=== PATIENT | female | born 1985 ===

== ENCOUNTER 2021-10-10 05:40 | Inpatient (IN) | payer OTHER ==
[2021-10-10 06:12] VITALS: BMI 30.1
[2021-10-10] MEDS: ELECTROLYTE-148 SOLN 1,000 ML IV SCH (07:00)
[2021-10-10] MEDS ORDERED: OXYTOCIN 20 UNITS in 0.9% NS 20 UNIT/1,000 ML INFUS.BAG IV ONE (08:12)
[2021-10-10] MEDS ORDERED: PHENYLEPHRINE HCL 10 MG/1 ML SINGLE DOSE VIAL ONE (08:16)
[2021-10-10] MEDS ORDERED: ePHEDrine SULFATE 50 MG/1 ML AMPULE ONE (08:16)
[2021-10-10] MEDS ORDERED: ceFAZolin SODIUM 1 GM VIAL ONE (08:34)
[2021-10-10] MEDS ORDERED: ONDANSETRON 4 MG/2 ML VIAL ONE (08:57)
[2021-10-10] MEDS ORDERED: ONDANSETRON 4 MG/2 ML VIAL IVPUSH PRN (09:44)
[2021-10-10] MEDS ORDERED: ELECTROLYTE-148 SOLN 500 ML IV ONE (09:46)
[2021-10-10] MEDS ORDERED: CITRIC ACID/SODIUM CITRATE 30 ML UNIT-DOSE CUP PO ONE (09:46)
[2021-10-10] MEDS ORDERED: METHYLERGONOVINE MALEATE 0.2 MG/1 ML AMP IM PRN (09:47)
[2021-10-10] MEDS ORDERED: OXYTOCIN 20 UNITS in 0.9% NS 20 UNIT/1,000 ML INFUS.BAG IV SCH (10:00)
[2021-10-10] MEDS: IBUPROFEN 800 MG/8 ML IJ IVPB PRN ×2 (10:05→18:17)
[2021-10-10] MEDS: IBUPROFEN 600 MG TABLET (FP) PO PRN (15:20)
[2021-10-11] MEDS: IBUPROFEN 800 MG/8 ML IJ IVPB PRN (01:13)
[2021-10-11] MEDS: ACETAMINOPHEN 325 MG TABLET (FP) PO PRN ×2 (06:12→13:26)
[2021-10-11 09:02] LABS: BASO % 0.2 % (0-2.0); HEMOGLOBIN 10.1 GM/dL (10.7-15.3); LYMPH % 13.8 % (8-40); MCH 30.5 pg (25.7-33.7); MCHC 33.8 g/dl (32.0-36.0); MEAN CELL VOLUME 90.3 fl (80-96); MONO % 7.9 % (3.8-10.2); NEUT % 77.1 % (42.8-82.8); PLATELET COUNT 165 10^3/uL (134-434); RBC 3.32 M/mm3 (3.60-5.2); RDW 14.2 % (11.6-15.6); WHITE BLOOD COUNT 10.1 K/mm3 (4.0-10.0)
[2021-10-11] MEDS ORDERED: BISACODYL 10 MG SUPP.RECT RC PRN (09:47)
[2021-10-11] MEDS: SIMETHICONE 80 MG TAB.CHEW (FP) PO PRN ×2 (09:51→21:44)
[2021-10-11] MEDS ORDERED: DIPHTH,PERTUSS(ACELL),TET 0.5 ML DISP.SYRIN IM ONE (10:00)
[2021-10-11] MEDS: oxyCODONE HCL 5 MG TABLET PO PRN ×3 (11:20→21:45)
[2021-10-11] MEDS: IBUPROFEN 600 MG TABLET (FP) PO PRN (18:00)
[2021-10-11] MEDS: SENNOSIDES/DOCUSATE COMBO (SENNA PLUS) TABLET (UD) PO PRN (21:44)
[2021-10-12] MEDS: IBUPROFEN 600 MG TABLET (FP) PO PRN ×3 (02:02→18:19)
[2021-10-12] MEDS: oxyCODONE HCL 5 MG TABLET PO PRN ×3 (08:23→21:20)
[2021-10-12] MEDS: SIMETHICONE 80 MG TAB.CHEW (FP) PO PRN ×4 (08:25→21:19)
[2021-10-12] MEDS: ACETAMINOPHEN 325 MG TABLET (FP) PO PRN (12:23)
[2021-10-12] MEDS: SENNOSIDES/DOCUSATE COMBO (SENNA PLUS) TABLET (UD) PO PRN (21:21)
[2021-10-13] MEDS: oxyCODONE HCL 5 MG TABLET PO PRN ×3 (02:19→14:23)
[2021-10-13] MEDS: SIMETHICONE 80 MG TAB.CHEW (FP) PO PRN ×3 (02:21→14:25)
[2021-10-13] MEDS: IBUPROFEN 600 MG TABLET (FP) PO PRN (06:30)
[2021-10-13] MEDS: ACETAMINOPHEN/CAFFEINE/BUTALBITAL 1 TAB PO PRN (18:33)
[2021-10-14] MEDS: ACETAMINOPHEN/CAFFEINE/BUTALBITAL 1 TAB PO PRN ×3 (00:05→13:07)
[2021-10-14] MEDS: IBUPROFEN 600 MG TABLET (FP) PO PRN (04:23)
[2021-10-14] MEDS: ELECTROLYTE-148 SOLN 1,000 ML IV SCH (10:13)
[2021-10-14 10:47] VITALS: BP 104/65; PULSE 81; TEMP 97.4
== END 2021-10-14 14:25 | disposition home or self-care (01) | DRG 788 ==
LOC: JLDR 05:40 → J3W 11:00
PROVIDERS: ADMIT Obstetrics & Gynecology; ATTEND Obstetrics & Gynecology
PROC: 10D00Z1 Extraction of Products of Conception, Low, Open Approach (ICD-10-PCS; principal; 2021-10-10)
PROC: 0DNU0ZZ Release Omentum, Open Approach (ICD-10-PCS; 2021-10-10)
DX: O34.211 Maternal care for low transverse scar from previous cesarean delivery (principal); N85.8 Other specified noninflammatory disorders of uterus; Z3A.39 39 weeks gestation of pregnancy; O26.893 Other specified pregnancy related conditions, third trimester; R51.9 Headache, unspecified; N73.6 Female pelvic peritoneal adhesions (postinfective); Z37.0 Single live birth
CPT/HCPCS: 36415; 85025; 88307-TC; 90715